=== PATIENT | male | born 1945 | race American Indian/Alaskan Native ===

== ENCOUNTER 2021-01-22 16:34 | Emergency (ER) | payer MEDICARE ==
--- NOTE | 2021-01-22 16:52 | Event Note ---
ED Screening Note Date of service: 01/22/21 Time: 16:51 ED Screening Note: 75-year-old immunosuppressed male patient status post renal transplant presents emergency department with complaints of acute urinary retention since yesterday. No fever. Vital signs are stable in triage. General: Awake, appropriately interactive, no acute distress. Neck: Supple. Full range of motion intact. Cardiovascular: Normal peripheral perfusion. Pulmonary: No respiratory distress. Patient is speaking normally without use of accessory muscles. Skin: No apparent rashes or lesions. Neurological: No facial asymmetry. Speech is clear. Follows commands. Patient is alert and oriented. Musculoskeletal: Moves all four extremities spontaneously with normal range of motion. Psych: Cooperative. Appropriate mood and affect. I have greeted and performed a focused rapid initial assessment of this patient. A comprehensive ED assessment and evaluation of the patient, analysis of all test results, and completion of the medical decision-making process will be conducted by additional ED providers. This initial assessment/diagnostic orders/clinical plan/treatment(s) is/are subject to change based on patients health status, clinical progression and re-assessment. Further treatment and workup at subsequent clinical provider's discretion. Patient/guardian urged not to elope from the ED as their condition may be serious if not clinically assessed and managed.
[2021-01-22 17:40] LABS: Eosinophils % (Auto) 0.5 % (0.0-4.3); Hematocrit 24.9 % (35.5-45.6); Hemoglobin 8.2 gm/dl (11.8-15.2); Lymphocytes # (Auto) 0.3 K/mm3 (1.2-5.4); Lymphocytes % (Auto) 7.3 % (13.4-35.0); Mean Corpuscular HGB Conc 33 % (32-34); Mean Corpuscular Volume 80 fl (84-94); Monocytes # (Auto) 0.6 K/mm3 (0.0-0.8); Monocytes % (Auto) 14.2 % (0.0-7.3); Platelet Count 223 K/mm3 (140-440); Red Cell Distribution Width 13.7 % (13.2-15.2)
--- NOTE | 2021-01-22 17:52 | Emergency Department Report ---
ED General Adult HPI - General Chief complaint: Urogenital-Male Stated complaint: im having trouble urinating PUI?: No Time Seen by Provider: 01/22/21 17:31 Source: patient, RN notes reviewed Mode of arrival: Ambulatory Limitations: No Limitations, Other (Patient is a poor historian) - History of Present Illness Initial comments: The patient was evaluated in the emergency department for symptoms described in the history of present illness. He/she was evaluated in the context of the global COVID-19 pandemic, which necessitated consideration that the patient might be at risk for infection with the virus that causes COVID-19. Institutional protocols and algorithms that pertain to the evaluation of patients at risk for COVID-19 are in a state of rapid change based on information released by regulatory bodies including the CDC and federal and state organizations. These policies and algorithms were followed during the hilario boogie's care in the emergency department. Please note that these policies, procedures and recommendations changed on a rapid basis. This is a 75-year-old gentleman. He is not known to myself previously. He has a history of diabetes, hypertension, and renal insufficiency. He also has a history of right lower quadrant renal transplant. Uncertain if live donor or cadaveric. He reports he is currently maintained on tacrolimus. He also reports that he had his transplant procedure done in [facility] a few years ago. He is new to [place]. The patient presents to the ER today with a complaint of right lower quadrant pain and difficulty urinating. He denies headache, neck pain, chest pain, shortness of breath. He denies vomiting, diaphoresis. He has had a few episodes of watery diarrhea. He endorses bilateral lower extremity swelling, which is present for 3 days, but "always there." He also reports that he saw a local primary care doctor, who "put me on some pills, I cannot remember what they are." He indicates that these prescribed medications were to "help get rid of the water on my legs." The patient reports taking extra doses of this presumed diuretic/water pill, secondary to inability to urinate, and lower extremity swelling. Inability to urinate/difficulty urinating has been present for the past day or so. Right lower quadrant pain is present for the past day or so. Bilateral lower extremity swelling is reportedly present for 3 days, but "always there." Patient is a rather poor historian. He is not accompanied by friends or family at this time for additional information or collateral information. -: Gradual, hour(s), days(s) Location: abdomen, left, right Radiation: non-radiation, distal Quality: aching Consistency: other (Right lower quadrant pain constant. Bilateral lower extremity swelling constant for the past 3 days) Improves with: none Worsens with: none - Related Data Home Medications Medication Instructions Recorded Confirmed Last Taken Chlorthalidone 50 mg PO DAILY 01/22/21 01/22/21 Unknown Ciprofloxacin [Ciprofloxacin ORAL 500 mg PO Q12H 01/22/21 01/22/21 Unknown LIQ] Famotidine [Acid-Pep] 20 mg PO Q8HR 01/22/21 01/22/21 Unknown Insulin Glargine,Hum.rec.anlog 100 unit SQ DAILY 01/22/21 01/22/21 Unknown [Lantus Solostar] Insulin Lispro [Humalog Anthony 100 unit SQ DAILY 01/22/21 01/22/21 Unknown Kwikpen] Losartan [Cozaar] 100 mg PO QDAY 01/22/21 01/22/21 Unknown Metoprolol Succinate [Kapspargo 50 mg PO DAILY 01/22/21 01/22/21 Unknown Sprinkle] Nitrofurantoin [place]/M-Cryst 100 mg PO Q12HR 01/22/21 01/22/21 Unknown [Macrobid CAP] Simvastatin 20 mg PO DAILY 01/22/21 01/22/21 Unknown Spironolactone [Aldactone] 25 mg PO QDAY 01/22/21 01/22/21 Unknown tiZANidine [Zanaflex 4mg TAB] 4 mg PO DAILY 01/22/21 01/22/21 Unknown Allergies Allergy/AdvReac Type Severity Reaction Status Date / Time No Known Allergies Allergy Unverified 01/22/21 16:44 ED Review of Systems ROS: Stated complaint: CANT URINATE Other details as noted in HPI Constitutional: malaise, weakness Eyes: denies: eye discharge ENT: denies: epistaxis Respiratory: denies: cough Cardiovascular: edema. denies: chest pain Gastrointestinal: abdominal pain, diarrhea. denies: nausea, vomiting Genitourinary: other (Urinary hesitancy). denies: testicular pain Musculoskeletal: denies: myalgia Neurological: weakness Hematological/Lymphatic: denies: easy bleeding ED Past Medical Hx - Past Medical History Hx Hypertension: Yes Hx Diabetes: Yes - Surgical History Additional Surgical History: KIDNEY TRANSPLANT - Medications Home Medications: Home Medications Medication Instructions Recorded Confirmed Last Taken Type Chlorthalidone 50 mg PO DAILY 01/22/21 01/22/21 Unknown History Ciprofloxacin [Ciprofloxacin ORAL 500 mg PO Q12H 01/22/21 01/22/21 Unknown History LIQ] Famotidine [Acid-Pep] 20 mg PO Q8HR 01/22/21 01/22/21 Unknown History Insulin Glargine,Hum.rec.anlog 100 unit SQ DAILY 01/22/21 01/22/21 Unknown History [Lantus Solostar] Insulin Lispro [Humalog Anthony 100 unit SQ DAILY 01/22/21 01/22/21 Unknown History Kwikpen] Losartan [Cozaar] 100 mg PO QDAY 01/22/21 01/22/21 Unknown History Metoprolol Succinate [Kapspargo 50 mg PO DAILY 01/22/21 01/22/21 Unknown History Sprinkle] Nitrofurantoin [place]/M-Cryst 100 mg PO Q12HR 01/22/21 01/22/21 Unknown History [Macrobid CAP] Simvastatin 20 mg PO DAILY 01/22/21 01/22/21 Unknown History Spironolactone [Aldactone] 25 mg PO QDAY 01/22/21 01/22/21 Unknown History tiZANidine [Zanaflex 4mg TAB] 4 mg PO DAILY 01/22/21 01/22/21 Unknown History ED Physical Exam - General Limitations: Other (Patient is a poor historian) General appearance: alert, in no apparent distress - Head Head exam: Present: atraumatic, normocephalic - Eye Eye exam: Present: normal appearance, EOMI. Absent: nystagmus - ENT ENT exam: Present: normal exam, normal orophraynx, mucous membranes moist, no rmal external ear exam - Neck Neck exam: Present: normal inspection, full ROM. Absent: tenderness, meningismus - Respiratory Respiratory exam: Present: normal lung sounds bilaterally. Absent: respiratory distress, wheezes, rales, rhonchi, stridor, decreased breath sounds - Cardiovascular Cardiovascular Exam: Present: regular rate, normal rhythm, normal heart sounds. Absent: bradycardia, tachycardia, irregular rhythm, systolic murmur, diastolic murmur, rubs, gallop - GI/Abdominal GI/Abdominal exam: Present: soft, tenderness, other (There is right lower quadrant pain/tenderness to deep palpation). Absent: distended, guarding, rebound, rigid, pulsatile mass - Rectal Rectal exam: Present: deferred - exam: Present: other (There is cephalic swelling.) External exam: Present: normal external exam (Chaperoned by nurse Radha corral), other (There is normal testicular lie. There is normal cremasteric reflex. There is no testicular tenderness. There is no testicular swelling) - Extremities Exam Extremities exam: Present: normal inspection, full ROM, pedal edema (3+ edema in the bilateral lower extremities), other (2+ pulses noted in the bilateral upper and lower extremities. There is no palpable cord. negative Homans sign. Muscular compartments are soft. The pelvis is stable.). Absent: calf tenderness - Back Exam Back exam: Present: normal inspection. Absent: tenderness, CVA tenderness (R), CVA tenderness (L), paraspinal tenderness, vertebral tenderness - Neurological Exam Neurological exam: Present: alert, other (No facial droop. Tongue midline. Extraocular movements intact bilaterally. Facial sensation intact to light touch in V1, V2, V3 distribution bilaterally. 5 and a 5 strength in 4 extremities. Sensation intact to light touch in 4 extremities.). Absent: motor sensory deficit - Psychiatric Psychiatric exam: Present: anxious - Skin Skin exam: Present: warm, dry, intact, normal color. Absent: rash ED Course Vital Signs 01/22/21 01/22/21 01/22/21 16:47 18:43 19:16 Temperature 97.7 F Pulse Rate 60 62 Respiratory 22 20 14 Rate Blood Pressure 129/63 107/82 O2 Sat by Pulse 97 94 100 Oximetry O2 Sat by Pulse Oximetry [ Digit-Finger] 01/22/21 01/22/21 01/22/21 20:04 21:00 22:00 Temperature Pulse Rate 66 68 64 Respiratory 14 18 16 Rate Blood Pressure 107/82 107/82 116/74 O2 Sat by Pulse 100 100 100 Oximetry O2 Sat by Pulse Oximetry [ Digit-Finger] 01/22/21 01/22/21 01/22/21 23:00 23:10 23:24 Temperature Pulse Rate 62 66 Respiratory 12 13 Rate Blood Pressure 161/68 109/76 O2 Sat by Pulse 100 100 Oximetry O2 Sat by Pulse 99 Oximetry [ Digit-Finger] 01/23/21 00:00 Temperature Pulse Rate 65 Respiratory 13 Rate Blood Pressure 109/76 O2 Sat by Pulse 100 Oximetry O2 Sat by Pulse Oximetry [ Digit-Finger] - Reevaluation(s) Reevaluation #1: 01/22/21 20:03 Differential diagnosis, including but not limited to: Urinary obstruction, urinary tract infection, BPH, obstructive hydronephrosis, graft rejection, transplant rejection, hypervolemic hyponatremia, diuretic associated hyponatremia Assessment and plan: 75-year-old gentleman presenting with right lower quadrant pain and urinary hesitancy. Post void residual almost 600 cc. This is s uggestive of urinary obstruction. Lyons catheter ordered. Nursing team reminded to place Lyons catheter. I suspect hypervolemic hyponatremia. Patient will be placed on fluid restriction. He had a CT scan of his abdomen pelvis which showed multiple concerning findings, including dilated hydroureteronephrosis, and inflammatory changes around his right kidney. The appendix was not identified, and nonspecific inflammatory findings were noted around the cecum. I suspect these changes are likely secondary to his obstructive process. We do not have urology available for emergency room consultation. We do not have transplant nephrology available for consultation at this facility. I have co ntacted covering nephrology, Dr. Angel Hall, we discussed the patient's history, physical, laboratory studies and imaging findings. He advises that transfer to a transplant center would be advised. He is in agreement with antibiotics, placement of a Lyons catheter, and fluid restriction. We have placed a page out to the [facility] transfer center to arrange transfer. We will treat the patient's pain, and replete his hypomagnesemia. Anemia likely secondary to chronic renal insufficiency. Metabolic acidosis likely secondary to renal insufficiency. 01/22/21 20:09 Reevaluation #2: 01/22/21 22:14 We have reached out to the [facility] transfer center. The case was presented to the transplant electroencephalograph technician, Dr. Hilario. Dr. Hilario advised the transfer center that since this patient's transplant was not performed at [facility], the transplant team would not be able to accept the patient primarily. Dr. Hilario did indicate that the transplant team could follow in coordination and in consultation. Dr. Hilario apparently recommended discussion with either critical care, or hospital medicine, for hyponatremia. We are waiting for callback from critical care and [facility] to discuss further. In addition, nursing team unable to place Lyons catheter. Multiple nurses attempted. I also personally attempted to Place Lyons catheter, using maximum sterile precautions, with both a 16 Turkmen catheter, and a 12 Turkmen coud. Both attempts were unsuccessful. We have been waiting a very prolonged time for [facility] to call back. Therefore, while we wait for them to call back, we will also discuss with the demo coordinator/physician at [facility], in order to expedite appropriate disposition for this patient. The patient himself is resting comfortably on stretcher, does not appear to be in any acute distress. 01/22/21 23:08 [facility] not able to accommodate secondary to lack of ICU beds. In the meantime, [facility] has called back. Case discussed with Dr. Barnes Critical care physician. We have discussed the patient's history, physical, pertinent laboratory studies and imaging findings. He accepts the patient to his critical care unit. Medical decision makin-year-old gentleman, status post renal transplant, with evidence of hyponatremia, obstructive uropathy, potential transplant infection versus inflammation, requires transfer for urology, not available for consultation at this hospital, transplant nephrology, not available at this hospital. At the moment, patient protecting airway, hemodynamically stable, blood pressure within normal limits, and the patient is medically suitable for transfer for higher level of care for services not available at this facility. The accepting physician has indicated that his group will coordinate with their urologic service to Arrange definitive placement of catheter. 01/23/21 01:33 - Pulse Oximetry Interpretation Digit-Finger Initial Pulse Oximetry Readin O2 Sat by Pulse Oximetry: 99 Actions Taken: none ED Medical Decision Making - Lab Data Result diagrams: 01/22/21 17:25 01/22/21 22:30 Vital Signs - 24 hr 01/22/21 01/22/21 01/22/21 16:47 18:43 19:16 Temperature 97.7 F Pulse Rate 60 62 Respiratory 22 20 14 Rate Blood Pressure 129/63 107/82 O2 Sat by Pulse 97 94 100 Oximetry Lab Results 01/22/21 01/22/21 01/22/21 Range/Units 17:25 17:25 18:05 WBC 4.4 L (4.5-11.0) K/mm3 RBC 3.10 L (3.65-5.03) M/mm3 Hgb 8.2 L (11.8-15.2) gm/dl Hct 24.9 L (35.5-45.6) % MCV 80 L (84-94) fl MCH 27 L (28-32) pg MCHC 33 (32-34) % RDW 13.7 (13.2-15.2) % Plt Count 223 (140-440) K/mm3 Lymph % (Auto) 7.3 L (13.4-35.0) % [place] % (Auto) 14.2 H (0.0-7.3) % Eos % (Auto) 0.5 (0.0-4.3) % Baso % (Auto) 1.0 (0.0-1.8) % Lymph # (Auto) 0.3 L (1.2-5.4) K/mm3 [place] # (Auto) 0.6 (0.0-0.8) K/mm3 Eos # (Auto) 0.0 (0.0-0.4) K/mm3 Baso # (Auto) 0.0 (0.0-0.1) K/mm3 Seg Neutrophils % 77.0 H (40.0-70.0) % Seg Neutrophils # 3.4 (1.8-7.7) K/mm3 Sodium 111 L* (137-145) mmol/L Potassium 4.2 (3.6-5.0) mmol/L Chloride 82.5 L (98-107) mmol/L Carbon Dioxide 16 L (22-30) mmol/L Anion Gap 18 mmol/L BUN 24 H (9-20) mg/dL Creatinine 1.8 H (0.8-1.3) mg/dL Estimated GFR 37 ml/min BUN/Creatinine Ratio 13 % Glucose 105 H (75-100) mg/dL Calcium 8.1 L (8.4-10.2) mg/dL Magnesium 1.40 L (1.7-2.3) mg/dL Total Bilirubin 0.70 (0.1-1.2) mg/dL AST 26 (5-40) units/L ALT 8 (7-56) units/L Alkaline Phosphatase 73 (35-129) units/L Total Creatine Kinase 295 H (55-170) units/L Total Protein 6.0 L (6.3-8.2) g/dL Albumin 2.8 L (3.9-5) g/dL Albumin/Globulin Ratio 0.9 % Urine Color (Yellow) Urine Turbidity (Clear) Urine pH (5.0-7.0) Ur Specific [place] (1.003-1.030) Urine Protein (Negative) mg/dL Urine Glucose (UA) (Negative) mg/dL Urine Ketones (Negative) mg/dL Urine Blood (Negative) Urine Nitrite (Negative) Urine Bilirubin (Negative) Urine Urobilinogen (<2.0) mg/dL Ur Leukocyte Esterase (Negative) Urine WBC (Auto) (0.0-6.0) /HPF Urine RBC (Auto) (0.0-6.0) /HPF U Epithel Cells (Auto) (0-13.0) /HPF Urine Mucus /HPF 01/22/21 Range/Units 18:43 WBC (4.5-11.0) K/mm3 RBC (3.65-5.03) M/mm3 Hgb (11.8-15.2) gm/dl Hct (35.5-45.6) % MCV (84-94) fl MCH (28-32) pg MCHC (32-34) % RDW (13.2-15.2) % Plt Count (140-440) K/mm3 Lymph % (Auto) (13.4-35.0) % [place] % (Auto) (0.0-7.3) % Eos % (Auto) (0.0-4.3) % Baso % (Auto) (0.0-1.8) % Lymph # (Auto) (1.2-5.4) K/mm3 [place] # (Auto) (0.0-0.8) K/mm3 Eos # (Auto) (0.0-0.4) K/mm3 Baso # (Auto) (0.0-0.1) K/mm3 Seg Neutrophils % (40.0-70.0) % Seg Neutrophils # (1.8-7.7) K/mm3 Sodium (137-145) mmol/L Potassium (3.6-5.0) mmol/L Chloride (98-107) mmol/L Carbon Dioxide (22-30) mmol/L Anion Gap mmol/L BUN (9-20) mg/dL Creatinine (0.8-1.3) mg/dL Estimated GFR ml/min BUN/Creatinine Ratio % Glucose (75-100) mg/dL Calcium (8.4-10.2) mg/dL Magnesium (1.7-2.3) mg/dL Total Bilirubin (0.1-1.2) mg/dL AST (5-40) units/L ALT (7-56) units/L Alkaline Phosphatase (35-129) units/L Total Creatine Kinase (55-170) units/L Total Protein (6.3-8.2) g/dL Albumin (3.9-5) g/dL Albumin/Globulin Ratio % Urine Color [place] (Yellow) Urine Turbidity Slightly-cloudy (Clear) Urine pH 6.0 (5.0-7.0) Ur Specific [place] 1.005 (1.003-1.030) Urine Protein 100 mg/dl (Negative) mg/dL Urine Glucose (UA) Neg (Negative) mg/dL Urine Ketones Neg (Negative) mg/dL Urine Blood Lg (Negative) Urine Nitrite Neg (Negative) Urine Bilirubin Neg (Negative) Urine Urobilinogen < 2.0 (<2.0) mg/dL Ur Leukocyte Esterase Lg (Negative) Urine WBC (Auto) 34.0 H (0.0-6.0) /HPF Urine RBC (Auto) 46.0 (0.0-6.0) /HPF U Epithel Cells (Auto) < 1.0 (0-13.0) /HPF Urine Mucus Few /HPF - EKG Data -: EKG Interpreted by [place] EKG shows normal: sinus rhythm Rate: normal - EKG Data When compared to previous EKG there are: previous EKG unavailable 01/22/21 20:24 EKG is interpreted at 20: 24 Sinus rhythm, 61 bpm. First-degree AV block. Normal axis. Right bundle branch block. Motion artifact. Abnormal EKG. No prior for comparison. Not a STEMI. - Radiology Data Radiology results: report reviewed, image reviewed [facility] [address] [place] [address] Cat Scan Report Signed Patient: HUDSON SAUH MR#: [id number] : 1945 Acct:[id number] Age/Sex: 75 / M ADM Date: 01/22/21 Loc: ED Attending Dr: Ordering Physician: RAMILA RICE MD Date of Service: 01/22/21 Procedure(s): CT abdomen pelvis wo con Accession Number(s): [id number] cc: RAMILA RICE MD CT ABDOMEN AND PELVIS WITHOUT CONTRAST HISTORY: rlq pain. COMPARISON: None. TECHNIQUE: CT images of the abdomen and pelvis were obtained without administration of intravenous contrast. All CT scans at this location are performed using CT dose reduction for ALARA by means of automated exposure control. FINDINGS: Lungs/bones: Increased density seen within the left lower lung with septal thickening. Some rounded density seen next to the pleural surface measuring 2.9 x 0.9 cm. Chronic lung changes are noted coronary artery disease is noted. Abdomen/pelvis: There may be diffuse thickening throughout. Conus incomplete distention. Significant atrophy of the left kidney with renal calcifications. Largest calcification left kidney measures 4 mm. Surgical clips are seen in the right abdomen. There is a right renal transplant/pelvic kidney. There is significant right pelvic ureteral dilatation. No obstructing stone is seen. Urinary bladder is dilated. Bilateral inguinal nodes appear prominent. Urinary bladder wall is mildly thickened. The appendix is not definitely seen. Some mild inflammation surrounding the right pelvic kidney. Evaluation of the bowel is limited without oral contrast. No acute bone findings are seen. IMPRESSION: 1. Septal thickening with peripheral area of rounded/nodular density. This could represent atelectasis however follow-up for left lung nodule lesion. 2. Severe atrophy left kidney. There is suggested right renal transplant. The renal transplant presents significant right hydroureteron ephrosis. Inflammatory stranding is seen within the right lower quadrant. Underlying infection of the renal transplant could have this appearance. No drainable fluid collection is seen. 3. Appendix is not definitely seen. There is some inflammation surrounding the cecum and ascending colon.. Signer Name: Serafin Kelley MD Signed: 01/22/2021 6:50 PM Workstation Name: [id number] Transcribed By: SYLVIA Dictated By: YOAN KELLEY MD Electronically Authenticated By: YOAN KELLEY MD Signed Date/Time: 01/22/21 1850 DD/ 1845 Critical Care Time: Yes Critical care time in (mins) excluding proc time.: 120 Critical care attestation.: If time is entered above; I have spent that time in minutes in the direct care of this critically ill patient, excluding procedure time. ED Disposition Clinical Impression: Renal insufficiency, Renal transplant disorder, Anemia, Urinary obstruction, Hyponatremia, Hypervolemia, Hypomagnesemia, Metabolic acidosis Disposition: DC/TX-02 SHRT-TRM GEN HOSP IP Is pt being admited?: No Does the pt Need Aspirin: No Condition: Serious Referrals: PRIMARY CARE, [Primary Care Provider] - 3-5 Days
[2021-01-22 18:01] LABS: Albumin 2.8 g/dL (3.9-5); Calcium 8.1 mg/dL (8.4-10.2)
[2021-01-22] MEDS ORDERED: ACETAMINOPHEN 325 MG TAB PO ONE (18:01)
[2021-01-22] MEDS ORDERED: MAGNESIUM OXIDE 400 MG TAB PO STA (18:03)
--- NOTE | 2021-01-22 18:54 | Cat Scan Report ---
CT ABDOMEN AND PELVIS WITHOUT CONTRAST HISTORY: rlq pain. COMPARISON: None. TECHNIQUE: CT images of the abdomen and pelvis were obtained without administration of intravenous co ntrast. All CT scans at this location are performed using CT dose reduction for ALARA by means of tomated exposure control. FINDINGS: Lungs/bones: Increased density seen within the left lower lung with septal thickening. Some rounded density seen next to the pleural surface measuring 2.9 x 0.9 cm. Chronic lung changes are noted coron gabrielle artery disease is noted. Abdomen/pelvis: There may be diffuse thickening throughout. Conus incomplete distention. Significant atrophy of the left kidney with renal calcifications. Largest calcification left kidney measures 4 m m. Surgical clips are seen in the right abdomen. There is a right renal transplant/pelvic kidney. The re is significant right pelvic ureteral dilatation. No obstructing stone is seen. Urinary bladder is dilated. Bilateral inguinal nodes appear prominent. Urinary bladder wall is mildly thickened. The stewart endix is not definitely seen. Some mild inflammation surrounding the right pelvic kidney. Evaluation of the bowel is limited without oral contrast. No acute bone findings are seen. IMPRESSION: 1. Septal thickening with peripheral area of rounded/nodular density. This could represent atelectasi s however follow-up for left lung nodule lesion. 2. Severe atrophy left kidney. There is suggested right renal transplant. The renal transplant presen ts significant right hydroureteronephrosis. Inflammatory stranding is seen within the right lower sharyn drant. Underlying infection of the renal transplant could have this appearance. No drainable fluid co llection is seen. 3. Appendix is not definitely seen. There is some inflammation surrounding the cecum and ascending co ratna.. Signer Name: Serafin Kelley MD Signed: 01/22/2021 6:50 PM Workstation Name: [id number]
[2021-01-22 19:07] LABS: Bilirubin,Urine NEG (Negative); Blood,Urine LG (Negative); Color,Urine Amber (Yellow); Mucus,Urine FEW /HPF; Urobilinogen,Urine < 2.0 mg/dL (<2.0)
[2021-01-22] MEDS ORDERED: cefTRIAXone/NS 2 GM/100 ML 2 GM/100 ML BAG IV ONE (19:48)
[2021-01-22] MEDS ORDERED: fentaNYL 100 MCG/2 ML INJ IV ONE ×2 (21:19→23:45)
[2021-01-23 00:37] VITALS: BP 109/76
--- NOTE | 2021-01-23 11:31 | Electrocardiograph Report ---
[facility] Test Date: 2021-01-22 Test Time: 20:19:56 Pat Name: HUDSON SAHU Department: Room: Gender: M [employer]: : 1945 Requested By: RAMILA RICE Order Number: [id number] Reading MD: Kaleb Mitchell Measurements Intervals [place] Rate: 61 P: 118 MD: 236 QRS: 30 QRSD: 141 T: 43 QT: 491 QTc: 496 Interpretive Statements Sinus rhythm Prolonged MD interval Right bundle branch block No previous ECG available for comparison Electronically Signed On 01-23-2021 11:31:13 EDT by Kaleb Mitchell
== END 2021-01-23 01:16 | disposition short-term general hospital (02) ==
LOC: ED 16:34
DX: N28.9 Disorder of kidney and ureter, unspecified (principal); E87.2 Acidosis; E83.42 Hypomagnesemia; E87.70 Fluid overload, unspecified; E87.1 Hypo-osmolality and hyponatremia; N13.9 Obstructive and reflux uropathy, unspecified; D64.9 Anemia, unspecified; I10 Essential (primary) hypertension; E11.9 Type 2 diabetes mellitus without complications; Z94.0 Kidney transplant status; Z98.890 Other specified postprocedural states; Z79.4 Long term (current) use of insulin; Z79.2 Long term (current) use of antibiotics; Z79.899 Other long term (current) drug therapy
CPT/HCPCS: 36415; 74176; 80048; 80053; 80197; 81001; 82140; 82550; 83735; 85025; 87040; 87086; 93005; 96365; 96375; 96376; 99291; 99292; J0696; J3010